=== PATIENT | female | born 1980 | race Hispanic/Latino ===

== ENCOUNTER 2020-08-28 05:20 | Emergency (ER) | payer MEDICAID, OTHER ==
[2020-08-28] MEDS ORDERED: LIDOCAINE HCL 1% 20 ML VIAL ONE (05:44)
[2020-08-28] MEDS ORDERED: SULFAMETHOX-TMP DS 800/160 TAB ONE (06:07)
[2020-08-28 06:19] LABS: BASOPHILS % (AUTO) 0.8 % (0.0-5.0); EOSINOPHILS % (AUTO) 1.5 % (0.0-8.0); HEMATOCRIT 40.2 % (36-48); LYMPHOCYTES % (AUTO) 30.7 % (21.0-51.0); MEAN CORPUSCULAR HEMOGLOBIN 30.4 pg (27.0-33.0); MEAN CORPUSCULAR HGB CONC 34.1 g/dL (32.0-36.0); MEAN CORPUSCULAR VOLUME 89.3 fL (79-99); MONOCYTES % (AUTO) 6.8 % (3.0-13.0); NEUTROPHILS % (AUTO) 59.4 % (40.0-77.0); PLATELET COUNT (AUTO) 231 K/uL (130-400); RED CELL DISTRIBUTION WIDTH 11.9 % (11.0-15.5); WHITE BLOOD COUNT (AUTO) 9.1 K/uL (4.8-10.8)
[2020-08-28 06:44] LABS: ALBUMIN 2.8 g/dL (3.5-5.0); BILIRUBIN,TOTAL 0.4 mg/dL (0.2-1.0); CREATININE 0.7 mg/dL (0.5-1.5); TOTAL PROTEIN, SERUM 6.3 g/dL (6.0-8.3)
== END 2020-08-28 06:42 | disposition home or self-care (01) ==
LOC: EDH 05:20
DX: L03.011 Cellulitis of right finger (principal)
CPT/HCPCS: 10060; 36415; 80053; 85025; 87070; 87076